=== PATIENT | male | born 1970 | race African-American/Black ===

== ENCOUNTER 2020-05-07 23:36 | Inpatient (IN) | payer OTHER ==
[~2020-05-07] VITALS: Ht 182.9 cm; Wt 94.0 kg
[2020-05-08 00:20] LABS: Basophils # (auto) 0 10 ^3/uL (0-0.2); Eosinophils # (auto) 0.2 10 ^3/uL (0-0.8); Eosinophils % (auto) 2.3 % (0.0-7.0); Hemoglobin 13.1 g/dL (13.5-17.5); Monocytes # (auto) 0.8 10 ^3/uL (0-1.3); Red Cell Distribution Width 15.6 % (11.8-14.3); White Blood Cell 6.6 10^3/uL (4.4-10.8)
[2020-05-08 00:21] LABS: Basophils % (auto) 0.5 % (0.0-2.0); Hematocrit 40.2 % (41.0-53.0); Lymphocytes # (auto) 3.1 10 ^3/uL (0.4-5.4); Lymphocytes % (auto) 46.5 % (10.0-50.0); Mean Corpuscular Hemoglobin 23.7 pg (28.0-32.0); Mean Corpuscular Hgb Conc. 32.5 g/dL (32.0-36.0); Mean Corpuscular Volume 73.1 fL (80.0-100.0); Monocytes % (auto) 11.9 % (0.0-12.0); Neutrophils # (auto) 2.6 10 ^3/uL (1.6-8.6); Neutrophils % (auto) 38.8 % (37.0-80.0); Nucleated Red Blood Cells % 0.2 %; Platelet Count (auto) 293 10^3/uL (140-450); Red Blood Cells 5.51 10^6/uL (4.5-5.90)
[2020-05-08 00:35] LABS: INR 1.01 (0.9-1.15); Partial Thromboplastin Time 28.3 sec (23.0-31.2)
[2020-05-08 00:44] LABS: Alanine Aminotransferase 55 U/L (16-61); Albumin 4.2 g/dL (3.4-5.0); Anion Gap 11 (5-15); Aspartate Aminotransferase 41 U/L (15-37); BUN/Creatinine Ratio 17.3; Blood Alcohol < 3.0 mg/dL (0-5); Blood Urea Nitrogen 14 mg/dL (7-18); Calcium 8.5 mg/dL (8.5-10.1); Carbon Dioxide 23 mmol/L (21-32); Chloride 102 mmol/L (98-107); GFR African American 129 mL/min; GFR Non-African American 107 mL/min; Glucose 111 mg/dL (74-106); Magnesium 1.8 mg/dL (1.6-2.6); Potassium 3.7 mmol/L (3.5-5.1); Sodium 136 mmol/L (136-145)
[2020-05-08] MEDS ORDERED: dilTIAZem 25 MG/5 ML VIAL IV ONE ×2 (00:45→03:00)
[2020-05-08] MEDS ORDERED: dilTIAZem HCL 60 MG TAB PO ONE (00:45)
[2020-05-08 00:49] LABS: Alkaline Phosphatase 58 U/L (45-117); Bilirubin, Total 0.9 mg/dL (0.2-1.0)
[2020-05-08] MEDS ORDERED: MORPHINE SULF INJ 2 MG/ML SYRINGE 1ML IV PRN (05:00)
[2020-05-08] MEDS ORDERED: ONDANSETRON HCL 4 MG/2 ML VIAL IV PRN (05:00)
[2020-05-08] MEDS ORDERED: NITROGLYCERIN 0.4 MG SL TAB SL PRN (05:00)
[2020-05-08] MEDS ORDERED: ACETAMINOPHEN 325 MG TAB PO PRN (05:00)
[2020-05-08] MEDS ORDERED: TEMAZEPAM 15 MG CAP PO PRN (05:00)
[2020-05-08] MEDS ORDERED: BENAZEPRIL HCL 10 MG TAB PO SCH (10:00)
[2020-05-08] MEDS ORDERED: ENOXAPARIN SOD 40 MG/0.4 ML SYRINGE SC SCH (10:00)
[2020-05-08] MEDS ORDERED: HCTZ 25 MG TAB PO SCH (10:00)
[2020-05-08] MEDS ORDERED: FAMOTIDINE 20 MG TAB PO SCH (10:00)
[2020-05-08] MEDS ORDERED: METOPROLOL TARTRATE 25 MG TAB PO SCH (10:00)
[2020-05-08] MEDS ORDERED: FLECAINIDE ACETATE 50 MG TAB PO SCH (10:00)
[2020-05-08] MEDS ORDERED: ASPirin 81 mg TAB PO SCH (10:00)
[2020-05-08 11:34] LABS: Urine Bacteria NONE SEEN /hpf (None Seen); Urine Blood Negative /uL (Negative); Urine Mucus FEW (None Seen); Urine Specific Gravity 1.022 (1.001-1.035); Urine WBC 2 /hpf (0 - 3)
[2020-05-08 11:54] LABS: Alcohol, Urine < 3.0 mg/dL (0-10); Barbiturate Scree,Urine NEGATIVE (NEGATIVE); Benzodiazephine Screen, Urine NEGATIVE (NEGATIVE); Cannabinoid Screen, Urine NEGATIVE (NEGATIVE); Cocaine Screen, Urine NEGATIVE (NEGATIVE); Opiate Scree,Urine POSITIVE (NEGATIVE)
[2020-05-08 12:01] LABS: Amphetamine Screen, Urine NEGATIVE (NEGATIVE); Phencyclidine Screen, Urine NEGATIVE (NEGATIVE)
[2020-05-08] MEDS ORDERED: ASPI325T4 PO (13:02)
[2020-05-08] MEDS ORDERED: FLE50T PO (13:02)
[2020-05-08] MEDS ORDERED: MET25T PO (13:03)
[2020-05-08 14:00] VITALS: BP 145/97
[2020-05-08] MEDS ORDERED: ATORVASTATIN 20 MG TAB PO SCH (22:00)
== END 2020-05-08 16:37 | disposition home or self-care (01) | DRG 310 ==
LOC: ER 23:38 → TELE 23:39
PROVIDERS: ADMIT Nurse Practitioner; ATTEND Internal Medicine Nephrology
DX: I48.92 Unspecified atrial flutter (principal); I48.91 Unspecified atrial fibrillation; I10 Essential (primary) hypertension; D50.9 Iron deficiency anemia, unspecified; E78.5 Hyperlipidemia, unspecified
CPT/HCPCS: 36415; 71045; 80053; 80307; 80320; 81001; 83735; 84484; 85025; 85610; 85730; 93005; 93306; 96374; 96375; G0378

== ENCOUNTER 2022-10-06 14:48 | Inpatient (IN) | payer MEDICAID, OTHER ==
[~2022-10-06] VITALS: Ht 182.9 cm; Wt 107.4 kg
[~2022-10-06 14:48] MED LIST: ASPI325T4 PO; FLE50T PO; MET25T PO
[2022-10-06] MEDS ORDERED: AMIODARONE HCL 150 MG in D5W 5% 100 ML IV ONE (15:15)
[2022-10-06] MEDS ORDERED: AMIODARONE 450mg/250ml AE 250 ML IV SCH (15:30)
[2022-10-06 15:40] LABS: Basophils # (auto) 0 10 ^3/uL (0-0.2); Eosinophils # (auto) 0.1 10 ^3/uL (0-0.8); Monocytes # (auto) 0.6 10 ^3/uL (0-1.3); Nucleated Red Blood Cells % 0.2 %; Red Blood Cells 5.46 10^6/uL (4.5-5.90); White Blood Cell 5.1 10^3/uL (4.4-10.8)
[2022-10-06 15:41] LABS: Basophils % (auto) 0.8 % (0.0-2.0); Eosinophils % (auto) 1.5 % (0.0-7.0); Hematocrit 39.8 % (41.0-53.0); Hemoglobin 13.3 g/dL (13.5-17.5); Lymphocytes # (auto) 1.7 10 ^3/uL (0.4-5.4); Lymphocytes % (auto) 33.6 % (10.0-50.0); Mean Corpuscular Hemoglobin 24.4 pg (28.0-32.0); Mean Corpuscular Hgb Conc. 33.5 g/dL (32.0-36.0); Mean Corpuscular Volume 72.8 fL (80.0-100.0); Monocytes % (auto) 11.6 % (0.0-12.0); Neutrophils # (auto) 2.7 10 ^3/uL (1.6-8.6); Neutrophils % (auto) 52.5 % (37.0-80.0); Red Cell Distribution Width 15.7 % (11.8-14.3)
[2022-10-06 15:53] LABS: Albumin 4.3 g/dL (3.4-5.0); Calcium 9.8 mg/dL (8.5-10.1); Magnesium 2.1 mg/dL (1.6-2.6); Potassium 4.1 mmol/L (3.5-5.1)
[2022-10-06 15:56] LABS: Bilirubin, Total 1.2 mg/dL (0.2-1.0); Total Protein 8.1 g/dL (6.4-8.2)
[2022-10-06 16:17] LABS: INR 0.97 (0.9-1.15); Partial Thromboplastin Time 29.1 sec (24.6-33.4)
[2022-10-06] MEDS ORDERED: DOCUSATE SOD 100 MG CAP PO PRN (19:45)
[2022-10-06] MEDS ORDERED: ACETAMINOPHEN 325 MG TAB PO PRN (19:45)
[2022-10-06] MEDS ORDERED: ONDANSETRON HCL 4 MG/2 ML VIAL IV PRN (19:45)
[2022-10-06] MEDS ORDERED: NITROGLYCERIN 0.4 MG SL TAB SL PRN (19:45)
[2022-10-06] MEDS ORDERED: MORPHINE SULFATE INJ 2 MG/ml SYRG IV PRN (19:45)
[2022-10-06] MEDS ORDERED: MET50T PO (19:47)
[2022-10-06] MEDS ORDERED: ATOR20TA50 PO (19:47)
[2022-10-06] MEDS: ATORVASTATIN 20 MG TAB PO SCH (21:53)
[2022-10-06] MEDS: METOPROLOL TARTRATE 50 MG TAB PO SCH (21:53)
[2022-10-06] MEDS: SODIUM CHLOR 0.9% PF (SALINE LOCK) 10ML VIAL/SYR IV SCH (21:53)
[2022-10-06 22:21] LABS: Urine Bacteria NONE SEEN /hpf (None Seen); Urine Blood Negative /uL (Negative); Urine Hyaline Cast FEW /lpf (0 - 2); Urine Mucus FEW (None Seen); Urine Specific Gravity 1.024 (1.001-1.035); Urine WBC <1 /hpf (0 - 3)
[2022-10-07] MEDS ORDERED: TEMAZEPAM 15 MG CAP PO ONE (03:45)
[2022-10-07] MEDS: SODIUM CHLOR 0.9% PF (SALINE LOCK) 10ML VIAL/SYR IV SCH ×3 (05:55→22:40)
[2022-10-07 06:48] LABS: Basophils # (auto) 0 10 ^3/uL (0-0.2); Eosinophils # (auto) 0.1 10 ^3/uL (0-0.8); Monocytes # (auto) 0.8 10 ^3/uL (0-1.3); Neutrophils # (auto) 2.3 10 ^3/uL (1.6-8.6)
[2022-10-07 06:51] LABS: Potassium 3.8 mmol/L (3.5-5.1)
[2022-10-07 06:53] LABS: Basophils % (auto) 0.6 % (0.0-2.0); Eosinophils % (auto) 1.6 % (0.0-7.0); Hematocrit 40.6 % (41.0-53.0); Hemoglobin 13.1 g/dL (13.5-17.5); Lymphocytes % (auto) 38.5 % (10.0-50.0); Mean Corpuscular Hemoglobin 23.7 pg (28.0-32.0); Mean Corpuscular Hgb Conc. 32.4 g/dL (32.0-36.0); Mean Corpuscular Volume 73.1 fL (80.0-100.0); Monocytes % (auto) 15.7 % (0.0-12.0); Neutrophils % (auto) 43.6 % (37.0-80.0); Nucleated Red Blood Cells % 0.2 %; Red Blood Cells 5.55 10^6/uL (4.5-5.90); Red Cell Distribution Width 15.6 % (11.8-14.3); White Blood Cell 5.2 10^3/uL (4.4-10.8)
[2022-10-07 06:57] LABS: BUN/Creatinine Ratio 20.5; Bilirubin, Total 2.3 mg/dL (0.2-1.0); Total Protein 7.9 g/dL (6.4-8.2)
[2022-10-07] MEDS: HYDROcodone-ACET 5/325MG TAB PO PRN ×3 (08:41→22:47)
[2022-10-07] MEDS: PANTOPRAZOLE 40 MG/10 ML VIAL INJ IV SCH (10:19)
[2022-10-07] MEDS: METOPROLOL TARTRATE 50 MG TAB PO SCH ×2 (10:21→22:40)
[2022-10-07 12:22] LABS: Phencyclidine Screen, Urine NEGATIVE (NEGATIVE)
[2022-10-07 12:34] LABS: Amphetamine Screen, Urine NEGATIVE (NEGATIVE); Barbiturate Scree,Urine NEGATIVE (NEGATIVE); Benzodiazephine Screen, Urine NEGATIVE (NEGATIVE); Cannabinoid Screen, Urine NEGATIVE (NEGATIVE); Cocaine Screen, Urine NEGATIVE (NEGATIVE); Opiate Scree,Urine POSITIVE (NEGATIVE)
[2022-10-07] MEDS ORDERED: FOLIC ACID 1 MG, MULTIPLE VITAMIN 10 ML, MAGNESIUM SULF SDV 50% 8 MEQ, THIAMINE INJ 100... INJ ONE ×5 (13:45)
[2022-10-07] MEDS ORDERED: ASPirin 81 mg TAB PO ONE (13:45)
[2022-10-07 22:08] VITALS: BP 147/90
[2022-10-07] MEDS: FLECAINIDE ACETATE 50 MG TAB PO SCH (22:40)
[2022-10-07] MEDS: ATORVASTATIN 20 MG TAB PO SCH (22:41)
[2022-10-07] MEDS ORDERED: BENA40TA8 PO (22:44)
[2022-10-07] MEDS ORDERED: HYDR-4798 PO (22:44)
[2022-10-07] MEDS ORDERED: ASPI81CH59 PO (22:45)
[2022-10-07 23:17] VITALS: BP 147/90
[2022-10-08 05:00] VITALS: BP 136/95
[2022-10-08] MEDS: SODIUM CHLOR 0.9% PF (SALINE LOCK) 10ML VIAL/SYR IV SCH (05:35)
[2022-10-08] MEDS: METOPROLOL TARTRATE 50 MG TAB PO SCH (08:33)
[2022-10-08] MEDS: PANTOPRAZOLE 40 MG/10 ML VIAL INJ IV SCH (08:33)
[2022-10-08] MEDS: FLECAINIDE ACETATE 50 MG TAB PO SCH (08:35)
[2022-10-08 09:00] VITALS: BP 148/87
[2022-10-08] MEDS ORDERED: ASPirin 81 mg TAB PO SCH (10:00)
== END 2022-10-08 12:15 | disposition home or self-care (01) | DRG 201 ==
LOC: ER 14:48 → TELE 19:43 → TELE-EAST 10-07 21:47
PROVIDERS: ADMIT Nurse Practitioner Family; ATTEND Family Medicine
DX: I48.92 Unspecified atrial flutter (principal); E66.9 Obesity, unspecified; E78.5 Hyperlipidemia, unspecified; I10 Essential (primary) hypertension; I48.91 Unspecified atrial fibrillation; M54.9 Dorsalgia, unspecified; E78.00 Pure hypercholesterolemia, unspecified; G89.29 Other chronic pain; Z20.822 Contact with and (suspected) exposure to COVID-19; Z79.82 Long term (current) use of aspirin; Z68.32 Body mass index [BMI] 32.0-32.9, adult
CPT/HCPCS: 36415; 71045; 80053; 80307; 81001; 83735; 83880; 84443; 84484; 85025; 85610; 85730; 87426; 93005; 93306; 96365; 99291; C9113; G0378; J7060